=== PATIENT | female | born 1980 | race Caucasian/White ===

== ENCOUNTER 2022-10-05 20:04 | Emergency (ER) | payer OTHER, SELFPAY ==
--- NOTE | ~2022-10-05 | XR_ITS ---
EXAMINATION: XR chest 1V portable Exam Date/Time: 10/05/2022 20:55 [employer] SEGMENT HISTORY: chest pain Comparison: None available. RESULT: Lines, tubes, and devices: None. Lungs and pleura: Clear. Cardiomediastinal silhouette: Stable. Other: No acute osseous or upper abdominal finding. IMPRESSION: No acute cardiopulmonary process. Reviewed, dictated and finalized at location [facility] [employer] [facility] [employer] SEGMENT
[2022-10-05 20:07] VITALS: BP 127/89; PULSE 81; RESP 18; TEMP 36.7; O2SAT 100
[2022-10-05 20:30] LABS: Glucose Point of Care 85 mg/dl (65-105)
[2022-10-05 20:34] LABS: Basophils Percent Auto 0.6 % (0.2-1.2); Eosinophils Absolute Auto 0.1 K/mm3 (0-0.3); Eosinophils Percent Auto 1.5 % (0-4.4); Hematocrit 40.2 % (37.0-47.0); Immature Granulocyte Absolute 0.02 K/mm3 (0.00-0.031); Immature Granulocyte Percent A 0.3 % (0-0.5); Lymphocytes Absolute Auto 2.33 K/mm3 (0.9-3.2); Lymphocytes Percent Auto 35.5 % (18.3-44.2); Mean Corpuscular HGB Conc 34.8 g/dl (32-36); Mean Corpuscular Hemoglobin 30.3 pg (26-34); Mean Platelet Volume 9.5 fl (7.4-10.4); Monocytes Absolute Auto 0.4 K/mm3 (0.1-0.6); Monocytes Percent Auto 6.2 % (2.6-8.5); Neutrophils Absolute Auto 3.7 K/mm3 (1.3-6.7); Neutrophils Percent Auto 55.9 % (45.5-73.1); Platelet Count Result 180 k/mm3 (150-375); Red Blood Count 4.62 M/mm3 (4.2-5.4); Red Cell Distribution Width 12.7 % (11.5-14.5); White Blood Count 6.6 K/mm3 (4.5-10.0)
[2022-10-05 20:37] LABS: Appearance Urine Clear (Clear); Bacteria Urine Trace /hpf; Bilirubin Urine Negative (Negative); Blood Urine Trace-lysed (Negative); Color Urine Yellow (Yellow); Glucose Urine UA Negative (Negative); Ketones Urine Negative (Negative); Leukocyte Esterase Ur Negative LEU/UL (Negative); Nitrate Urine Negative (Negative); Protein Urine Negative (Negative); RBC Urine 0-2 /hpf (0-2); Squamous Epithelial Cell Urine Rare /hpf (Few); Urobilinogen Urine 0.2 mg/dL (<2.0); WBC Urine 0-3 /hpf; pH Urine 5.5 (5.0-9.0)
[2022-10-05 20:38] LABS: Add Urine Microscopic? YES
[2022-10-05 20:44] LABS: Alanine Aminotransferase 18 U/L (6-35); Albumin Level 4.3 g/dL (3.5-5.1); Alkaline Phosphatase 64 U/L (38-126); Anion Gap 5 mmol/L (8-16); Aspartate Amino Transferase 22 U/L (14-36); Bilirubin,Total 0.6 mg/dL (0.2-1.3); Blood Urea Nitrogen 12 mg/dL (7-17); Calcium 8.5 mg/dL (8.4-10.2); Carbon Dioxide 25 mmol/L (22-30); Chloride 105 mmol/L (98-107); Estimated CRCL calculation 73 ml/min; Estimated Glomerular Filt Rate > 60; Glucose 90 mg/dL (65-110); Lipase 145 U/L (23-300); Potassium 3.6 mmol/L (3.4-5.0); Sodium 135 mmol/L (137-145)
--- NOTE | 2022-10-05 20:52 | ECG_ITS ---
Measurements Intervals [place] Rate: 66 P: 21 MT: 156 QRS: 12 QRSD: 87 T: -7 QT: 410 QTc: 431 Interpretive Statements SINUS RHYTHM WITH OCCASIONAL SUPRAVENTRICULAR PREMATURE COMPLEXES NO PREVIOUS ECG AVAILABLE FOR COMPARISON Electronically Signed On 10-06-2022 8:26:34 [employer] by Vanessa Ivy M.D.
--- NOTE | 2022-10-05 20:54 | ED.GENADULT ---
HPI - General Adult General Chief complaint: Abdominal Pain Stated complaint: Urgent care said I could be having a heart attack Time Seen by Provider: 10/05/22 20:37 History of Present Illness HPI narrative: This is a 42-year-old female with a history of Liam-en-Y bypass presenting to the ED with abdominal pain x 5 days. The patient has been having sharp pain in the epigastric area that radiates to her back, is 8/9 in intensity and constant. The pain is improved with heartburn medication and Gas- X. The patient is not actually having pain at this moment. The patient called a physician in over the phone was told that it sounds like she was having a heart attack and advised to come to the emergency room. This caused the patient significant anxiety. Goal of today's visit is to make sure she is not having a heart attack. Related Data Home Medications Medication Instructions Recorded Confirmed No Home Medications 10/05/22 10/05/22 Allergies Allergy/AdvReac Type Severity Reaction Status Date / Time No Known Allergies Allergy Verified 10/05/22 20:05 PENDING SALE TO [facility] Past Medical History Medical History Anxiety Surgical History Surgical History History of weight loss surgery Social History Social History (Updated 10/05/22 @ 20:58 by Diallo Simmons MD) Social History: Patient denies using drugs alcohol or tobacco Exam Narrative: APPEARANCE: No apparent distress. patient is polite and pleasant during the interview Head: atraumatic. EYES: EOMI, NOSE: Atraumatic NECK: Trachea midline RESPIRATORY: No increased rate of breathing clear to auscultation CARDIOVASCULAR: RRR, no peripheral ABDOMINAL: Non-distended soft nontender no guarding or rebound MUSCULOSKELETAl: No obvious deformities NEURO: Alert. Moving 4/4 extremities SKIN:: Warm, dry. Normal color PSYCHIATRIC: Normal affect Course Vital Signs Vital signs: Vital Signs Temperature 98.1 F 10/05/22 20:07 Pulse Rate 81 10/05/22 20:07 Respiratory Rate 18 10/05/22 20:07 Blood Pressure 127/89 10/05/22 20:07 Pulse Oximetry 100 10/05/22 20:07 Oxygen Delivery Room Air 10/05/22 20:07 Temperature 98.1 F 10/05/22 20:07 Pulse Rate 81 10/05/22 20:07 Respiratory Rate 18 10/05/22 20:07 Blood Pressure 127/89 10/05/22 20:07 Pulse Oximetry 100 10/05/22 20:07 Oxygen Delivery Room Air 10/05/22 20:07 Medical Decision Making MDM Narrative Medical decision making narrative: -Presentation: 42-year-old female presenting with epigastric abdominal pain that resolved w/ heartburn medication and gasx. Patient was sent by an outside physician to get an ACS workup. Patient has no risk factors for ACS. 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 Patient has been experiencing pain for 5 days only 1 troponin is required. Chest x-ray was negative. Independent EKG interpretation: Rhythm [sinus], Rate 66, [place] -[normal], [place] -[normal], QRS [narrow], QTC [normal], T waves -[negative for concerning inversions], ST Segments - [Negative for concerning elevations] Final interpretations: [Normal Sinus Rhythm] Patient has a heart score of 0. She will be discharged with primary care follow-up. -Dx tests considered but not ordered: None -Procedures: none -Interventions: 1 L normal saline, 20 mg Pepcid, 30 mg mL Maalox -Shared decision making / Disposition: patient presented with epigastric pain that is consistent with g
[2022-10-05] MEDS: MAG HYDROX/AL HYDROX/SIMETH 30 ML UDC PO (21:04)
[2022-10-05] MEDS: FAMOTIDINE 20 MG/2 ML VIAL IV PUSH (21:04)
[2022-10-05] MEDS: SODIUM CHLORIDE 0.9% IV 1,000 ML 999 ML IV CONT (21:04)
[2022-10-05 21:19] LABS: Troponin I < 0.012 ng/mL (0.000-0.034)
[2022-10-05 21:36] VITALS: BP 107/80; PULSE 68; RESP 17; O2SAT 100
== END 2022-10-05 21:37 | disposition home or self-care (01) ==
PROVIDERS: Emergency Medicine; Emergency Provider Emergency Medicine
DX: R10.13 Epigastric pain (principal); Z98.84 Bariatric surgery status; I49.1 Atrial premature depolarization
CPT/HCPCS: 36415; 71045; 80053; 81001; 82948; 83690; 83735; 84484; 85025; 93005; 96361; 96374; 99284; A9270; J7030